=== PATIENT | male | born 1945 | race Two or more races ===

== ENCOUNTER 2022-04-30 10:58 | Outpatient (CLI) | payer MEDICARE, OTHER | END 2022-04-30 23:59 | disposition home or self-care (01) | LOC: CT 10:58 | PROVIDERS: ATTEND Internal Medicine Interventional Cardiology | DX: J98.09 Other diseases of bronchus, not elsewhere classified (principal); R06.00 Dyspnea, unspecified | CPT/HCPCS: 71250-TC ==